=== PATIENT | female | born 1970 | race Caucasian/White ===

== ENCOUNTER 2022-01-01 14:46 | Emergency (ER) | payer OTHER ==
[~2022-01-01] VITALS: Ht 160 cm; Wt 70.3 kg
[2022-01-01 15:00] VITALS: BP 140/102
--- NOTE | 2022-01-01 15:10 | NUR ---
The patient bibs for "Rash on Right side x5days". In room air and denies SOB. Respiration regular and unlabored. Will continue to monitor the patient.
[2022-01-01] MEDS ORDERED: ACYC-108 PO (15:32)
[2022-01-01] MEDS ORDERED: IBUP-1957 PO (15:32)
--- NOTE | 2022-01-01 15:56 | NUR ---
Patient discharged to home in stable condition. Written and verbal after care instructions given. Patient verbalizes understanding of instruction.
== END 2022-01-01 15:56 | disposition home or self-care (01) ==
LOC: ER 14:48
DX: R21 Rash and other nonspecific skin eruption (principal); Z79.899 Other long term (current) drug therapy